=== PATIENT | male | born 1995 | race Caucasian/White ===

== ENCOUNTER → 2018-06-07 | Outpatient (CLI) | payer OTHER | LOC: BMCIMAGING 14:01 | PROVIDERS: ATTEND Family Medicine | DX: S62.012A Displaced fracture of distal pole of navicular [scaphoid] bone of left wrist, initial encounter for closed fracture (principal) ==

== ENCOUNTER → 2018-07-18 | Outpatient (CLI) | payer OTHER | LOC: BMCIMAGING 09:32 | PROVIDERS: ATTEND Physician Assistant | DX: S62.102D Fracture of unspecified carpal bone, left wrist, subsequent encounter for fracture with routine healing (principal) ==